=== PATIENT | female | born 1955 | race Caucasian/White ===

== ENCOUNTER 2020-09-25 20:09 | Inpatient (IN) | payer OTHER ==
[~2020-09-25] VITALS: Ht 165.1 cm; Wt 68.0 kg
[2020-09-25] MEDS ORDERED: ZETIA10 MG (20:29)
[2020-09-25] MEDS ORDERED: OMEGA 3 1,0001 EACH (20:29)
[2020-09-27] MEDS ORDERED: OMEGA-3 ACID ETH1 GM (10:48)
[2020-09-27] MEDS ORDERED: MAXIMUM D3325 MCG (10:48)
== END 2020-09-27 13:38 | disposition home or self-care (01) | DRG 343 ==
LOC: ER 20:09 → SURH 09-26 10:49 → MEDJ 09-26 10:49 → SURH 09-26 11:36
PROVIDERS: ADMIT Surgery; ATTEND Surgery
PROC: 0DTJ4ZZ Resection of Appendix, Percutaneous Endoscopic Approach (ICD-10-PCS; principal; 2020-09-26 14:00)
DX: K35.890 Other acute appendicitis without perforation or gangrene (principal); Z20.822 Contact with and (suspected) exposure to COVID-19

== ENCOUNTER 2020-11-26 14:52 | Emergency (ER) | payer OTHER ==
[~2020-11-26] VITALS: Ht 165.1 cm; Wt 56.7 kg
[~2020-11-26 14:52] MED LIST: MAXIMUM D3325 MCG; OMEGA 3 1,0001 EACH; OMEGA-3 ACID ETH1 GM; ZETIA10 MG
== END 2020-11-26 19:53 | disposition home or self-care (01) ==
LOC: ER 14:52
DX: S93.492A Sprain of other ligament of left ankle, initial encounter (principal); S80.01XA Contusion of right knee, initial encounter; W18.09XA Striking against other object with subsequent fall, initial encounter; Y93.01 Activity, walking, marching and hiking; Y92.512 Supermarket, store or market as the place of occurrence of the external cause; Y99.8 Other external cause status

== ENCOUNTER 2021-10-15 20:49 | Emergency (ER) | payer OTHER ==
[~2021-10-15] VITALS: Ht 165.1 cm; Wt 59.0 kg
[2021-10-16] MEDS ORDERED: IBU400 MG PO (00:35)
== END 2021-10-16 01:11 | disposition home or self-care (01) ==
LOC: ER 20:49
DX: S01.111A Laceration without foreign body of right eyelid and periocular area, initial encounter (principal); W01.0XXA Fall on same level from slipping, tripping and stumbling without subsequent striking against object, initial encounter; Y93.89 Activity, other specified; Y92.480 Sidewalk as the place of occurrence of the external cause; G62.9 Polyneuropathy, unspecified; M19.90 Unspecified osteoarthritis, unspecified site